=== PATIENT | male | born 1965 | race Caucasian/White ===

== ENCOUNTER 2022-09-04 04:11 | Day surgery (SDC) | payer OTHER ==
[2022-09-03 16:03] VITALS: BMI 25.1
[2022-09-04] MEDS ORDERED: LIDOCAINE 1%/EPI 1:100000 (20 ML MULTI DOSE VIAL) ONE (07:27)
[2022-09-04] MEDS ORDERED: ROCURONIUM BROMIDE 50 MG/5 ML SYRINGE ONE ×3 (07:31→08:27)
[2022-09-04] MEDS ORDERED: DEXAMETHASONE SOD PHOSPHATE 4 MG/1 ML VIAL ONE (07:31)
[2022-09-04] MEDS ORDERED: LIDOCAINE HCL/PF 2% SDV 5ML VIAL ONE (07:31)
[2022-09-04] MEDS ORDERED: PROPOFOL 40 ML ONE (07:31)
[2022-09-04] MEDS ORDERED: ONDANSETRON 4 MG/2 ML VIAL ONE (07:31)
[2022-09-04] MEDS ORDERED: SUCCINYLCHOLINE CHLORIDE 200 MG/10 ML SYRINGE ONE (07:31)
[2022-09-04] MEDS ORDERED: MIDAZOLAM HCL 2 MG/2 ML SINGLE DOSE VIAL ONE (07:31)
[2022-09-04] MEDS ORDERED: NEOSTIGMINE METHYLSULFATE 0.5 MG/1 ML - 10 ML MDV ONE (08:05)
[2022-09-04] MEDS ORDERED: LIDOCAINE 1%/EPI 1:100000 (20 ML MULTI DOSE VIAL) IJ ONE ×2 (08:08)
[2022-09-04] MEDS ORDERED: PROPOFOL 20 ML ONE (08:26)
[2022-09-04] MEDS ORDERED: oxyCODONE HCL 5 MG TABLET PO PRN (10:36)
[2022-09-04] MEDS ORDERED: ONDANSETRON 4 MG/2 ML VIAL IVPUSH PRN (10:36)
[2022-09-04] MEDS ORDERED: ACETAMINOPHEN 1000 MG/100 ML BAG IVPB ONE ×2 (10:36→11:26)
[2022-09-04] MEDS ORDERED: ACETAMINOPHEN INJECTION 100 ML IVPB ONE (10:41)
[2022-09-04] MEDS ORDERED: LACTATED RINGERS SOLUTION 1,000 ML IV SCH (10:45)
[2022-09-04] MEDS ORDERED: oxyCODONE HCL 5 MG TABLET ONE (11:47)
[2022-09-04 15:06] VITALS: RESP 20; TEMP 97.7
[2022-09-04 15:12] VITALS: BP 165/81; PULSE 53
== END 2022-09-04 13:10 | disposition home or self-care (01) ==
LOC: JASU-SURG 04:11
PROVIDERS: ATTEND Otolaryngology
PROC: 09BM8ZZ Excision of Nasal Septum, Via Natural or Artificial Opening Endoscopic (ICD-10-PCS; principal; 2022-09-04 08:00)
DX: J34.2 Deviated nasal septum (principal); J34.3 Hypertrophy of nasal turbinates
CPT/HCPCS: 88304-TC; 94760